=== PATIENT | female | born 1950 | race Hispanic/Latino ===

== ENCOUNTER 2019-10-14 17:57 | Emergency (ER) | payer MEDICARE ==
--- NOTE | 2019-10-15 05:20 | Emergency Department Report ---
ED Shortness of Breath HPI - General Chief Complaint: Dyspnea/Respdistress Stated Complaint: DIFFICULTY BREATHING Time Seen by Provider: 10/15/19 05:15 Source: patient - History of Present Illness Initial Comments: Patient is 68 years old female with history of congestive heart failure and hypertension. Patient presented to the ER complaining of shortness of breath, cough productive with greenish sputum. Patient stated that her symptoms as being going on for 2 weeks. Patient denied any fever or chills. MD Complaint: shortness of breath, cough ED Review of Systems ROS: Stated complaint: DIFFICULTY BREATHING Other details as noted in HPI Comment: All other systems reviewed and negative Constitutional: denies: chills, fever Respiratory: cough, shortness of breath, SOB with exertion, SOB at rest, wheezing Cardiovascular: denies: chest pain, palpitations, dyspnea on exertion Neurological: denies: headache, weakness, numbness, paresthesias, confusion ED Physical Exam - General General appearance: alert, in no apparent distress - Head Head exam: Present: atraumatic, normocephalic, normal inspection - Eye Eye exam: Present: normal appearance - ENT ENT exam: Present: normal exam, normal orophraynx, mucous membranes moist - Neck Neck exam: Present: normal inspection, full ROM. Absent: tenderness, meningismus, lymphadenopathy, thyromegaly - Respiratory Respiratory exam: Present: wheezes, rhonchi. Absent: rales, accessory muscle use, decreased breath sounds, prolonged expiratory - Cardiovascular Cardiovascular Exam: Present: regular rate, normal rhythm, normal heart sounds - GI/Abdominal GI/Abdominal exam: Present: soft, normal bowel sounds. Absent: distended, tenderness, guarding, rebound, rigid, organomegaly, mass, bruit, pulsatile mass, hernia - Extremities Exam Extremities exam: Present: normal inspection, full ROM, normal capillary refill. Absent: tenderness, pedal edema, joint swelling, calf tenderness - Back Exam Back exam: Present: normal inspection, full ROM. Absent: CVA tenderness (R), CVA tenderness (L), muscle spasm, paraspinal tenderness, vertebral tenderness - Neurological Exam Neurological exam: Present: alert, oriented X3, CN II-XII intact, normal gait, reflexes normal - Skin Skin exam: Present: warm, intact, normal color ED Course Vital Signs 10/15/19 02:00 Temperature 97.5 F L Pulse Rate 98 H Respiratory 24 Rate Blood Pressure 126/55 [Left] O2 Sat by Pulse 97 Oximetry ED Medical Decision Making - EKG Data -: EKG Interpreted by Me EKG shows normal: sinus rhythm Rate: normal - EKG Data Interpretation: no acute changes - Radiology Data Radiology results: report reviewed - Medical Decision Making Patient is 68 years old female with history of congestive heart failure and hypertension. Patient presented to the ER complaining of shortness of breath, cough productive with greenish sputum. Patient stated that her symptoms as being going on for 2 weeks. Patient denied any fever or chills. Patient received albuterol, Atrovent, Solu-Medrol and Levaquin. Patient stated that she is feeling much better. Labs reviewed and is unremarkable. Chest x- ray show no acute finding. Patient given prescription for Levaquin, prednisone and albuterol inhaler and advised to follow up with her primary care physician in the next 2-3 days and to return to the ER if symptoms are not improved. Critical care attestation.: If time is entered above; I have spent that time in minutes in the direct care of this critically ill patient, excluding procedure time. ED Disposition Clinical Impression: Acute bronchitis, Shortness of breath Disposition: DC-01 TO HOME OR SELFCARE Is pt being admited?: No Condition: Stable Instructions: Acute Bronchitis (ED), Dyspnea (ED) Referrals: PRIMARY CARE, [Primary Care Provider] - 3-5 Days
[2019-10-15 06:02] VITALS: BP 112/55
== END 2019-10-15 05:30 | disposition home or self-care (01) ==
LOC: ED 17:57
DX: J20.9 Acute bronchitis, unspecified (principal)
CPT/HCPCS: 99282

== ENCOUNTER 2019-10-17 13:29 | Emergency (ER) | payer MEDICARE ==
[2019-10-18 07:29] LABS: Basophils % (Auto) 0.2 % (0.0-1.8); Eosinophils # (Auto) 0.1 K/mm3 (0.0-0.4); Eosinophils % (Auto) 0.8 % (0.0-4.3); Hematocrit 39.9 % (30.3-42.9); Hemoglobin 13.5 gm/dl (10.1-14.3); INR 1.1 (0.87-1.13); Lymphocytes # (Auto) 2.9 K/mm3 (1.2-5.4); Lymphocytes % (Auto) 27.3 % (13.4-35.0); Mean Corpuscular HGB Conc 34 % (30-34); Mean Corpuscular Volume 91 fl (79-97); Monocytes # (Auto) 1.1 K/mm3 (0.0-0.8); Monocytes % (Auto) 10.1 % (0.0-7.3); Platelet Count 373 K/mm3 (140-440); Red Blood Count 4.38 M/mm3 (3.65-5.03)
[2019-10-18 07:30] LABS: Partial Thromboplastin Time 24.7 Sec. (24.2-36.6)
[2019-10-18 07:42] LABS: Creatine Kinase MB 3.4 ng/mL (0.0-4.0)
[2019-10-18 07:44] LABS: Alanine Aminotransferase 19 units/L (7-56); Albumin 3.8 g/dL (3.9-5); BUN/Creatinine Ratio 19; Bilirubin,Direct < 0.2 mg/dL (0-0.2); Blood Urea Nitrogen 27 mg/dL (7-17); Calcium 9.6 mg/dL (8.4-10.2); Hemolysis Index 3
--- NOTE | 2019-10-18 07:54 | Cat Scan Report ---
CT HEAD/BRAIN WO CON INDICATION / CLINICAL INFORMATION: Hallucinations and altered mental status. TECHNIQUE: All CT scans at this location are performed using CT dose reduction for ALARA by means of automated e xposure control. COMPARISON: None available. FINDINGS: The ventricular system is normal in size and configuration. There are moderate small vessel ischemic changes in the periventricular white matter and gangliocapsular regions bilaterally, right greater th an left. No focal lesion or mass effect is seen. There is no evidence of intracranial hemorrhage or a cute major vessel occlusion. The calvarium is intact. There is mucosal thickening involving the left maxillary antrum with an air- fluid level in the midportion of the left maxillary sinus. The other paranasal sinuses and mastoid ai r cells are clear. IMPRESSION: 1. No acute intracranial abnormality. 2. Acute left maxillary sinusitis. Signer Name: Dario Olson MD Signed: 10/18/2019 7:50 AM Workstation Name: [id number]
[2019-10-18] MEDS ORDERED: PANTOPRAZOLE 40 MG TAB PO ONE (08:10)
[2019-10-18] MEDS ORDERED: ALUM-MAG HYDROXIDE-SIMETHICONE 200-200-20MG/5ML ORAL LIQD 30 ML PO ONE (08:10)
[2019-10-18 10:05] LABS: Bilirubin,Urine NEG (Negative); Blood,Urine NEG (Negative); Color,Urine Yellow (Yellow); Mucus,Urine FEW /HPF; Protein,Urine <15 mg/dL mg/dL (Negative); Urobilinogen,Urine < 2.0 mg/dL (<2.0)
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
[2019-10-18 10:14] LABS: Amphetamine Screen,Urine PRESUMPTIVE NEGATIVE; Benzodiazepines Screen,Urine PRESUMPTIVE NEGATIVE; Cannabinoid Screen,Urine PRESUMPTIVE NEGATIVE; Cocaine Screen,Urine PRESUMPTIVE NEGATIVE; Methadone Screen,Urine PRESUMPTIVE NEGATIVE; Opiate Screen,Urine PRESUMPTIVE NEGATIVE
--- NOTE | 2019-10-18 12:07 | XRay Report ---
CHEST 1 VIEW INDICATION / CLINICAL INFORMATION: hypertension. COMPARISON: None available. FINDINGS: SUPPORT DEVICES: None. HEART / MEDIASTINUM: No significant abnormality. LUNGS / PLEURA: No significant pulmonary or pleural abnormality. No pneumothorax. ADDITIONAL FINDINGS: Left hemidiaphragm is mildly elevated. IMPRESSION: 1. No acute pulmonary disease. Signer Name: Elzbieta Winslow MD Signed: 10/18/2019 12:03 PM Workstation Name: [id number]
[2019-10-18 12:09] VITALS: BP 140/77
[2019-10-18] MEDS ORDERED: ACETAMINOPHEN 325 MG TAB PO ONE (12:09)
== END 2019-10-18 13:25 | disposition home or self-care (01) ==
LOC: ED 13:29
DX: I42.9 Cardiomyopathy, unspecified (principal); E87.6 Hypokalemia; N28.9 Disorder of kidney and ureter, unspecified; F99 Mental disorder, not otherwise specified; I50.9 Heart failure, unspecified; K21.9 Gastro-esophageal reflux disease without esophagitis; M19.90 Unspecified osteoarthritis, unspecified site; Z79.899 Other long term (current) drug therapy
CPT/HCPCS: 36415; 70450; 71045; 80048; 80076; 80307; 81001; 82550; 82553; 82962; 83735; 83880; 84484; 85025; 85610; 85730; 93005; 93010

== ENCOUNTER 2022-02-16 02:04 | Emergency (ER) | payer MEDICARE ==
[2022-02-16 02:51] VITALS: BP 120/78
[2022-02-16] MEDS ORDERED: LIDOCAINE-MPF (1%) 10 MG/1 ML VIAL 5 ML INFILTRATI ONE (08:13)
[2022-02-16] MEDS ORDERED: KETOROLAC 10 MG TAB PO ONE (08:13)
[2022-02-16] MEDS ORDERED: dexAMETHasone 4 MG/ML VIAL IM ONE (08:13)
[2022-02-16] MEDS ORDERED: ACETAMINOPHEN W/CODEINE 300-30 MG TAB PO ONE (08:14)
--- NOTE | 2022-02-16 08:19 | Emergency Department Report ---
Upper Extremity - HPI Chief Complaint: Extremity Injury, Upper Stated Complaint: LFT ELBOW Time Seen by Provider: 02/16/22 07:39 Upper Extremity: Left Elbow Occurred When: Today Severity: moderate Symptoms: Yes Pain with Movement, Yes Limited Range of Movement, Yes Swelling, No Deformity, No Numbness, No Weakness, No Bruising/Ecchymosis, No Laceration or Abrasion Other History: 71-year-old white female with a past medical history of CHF, hypertension, and anxiety presents to the emergency department for evaluation of left elbow pain and swelling. She states that she woke up this morning and she had pain and swelling in her left elbow but denies injury or trauma. She denies fever. ED Review of Systems ROS: Stated complaint: LFT ELBOW Other details as noted in HPI Comment: All other systems reviewed and negative Constitutional: denies: chills, fever Respiratory: denies: shortness of breath, SOB with exertion, SOB at rest Cardiovascular: denies: chest pain, palpitations Gastrointestinal: denies: abdominal pain, nausea, vomiting Genitourinary: denies: urgency, dysuria, frequency, hematuria, discharge Musculoskeletal: denies: back pain Skin: denies: rash, lesions Neurological: denies: headache, weakness ED Past Medical Hx - Past Medical History Previous Medical History?: Yes Hx Congestive Heart Failure: Yes Hx GERD: Yes Hx Arthritis: Yes - Surgical History Past Surgical History?: Yes Additional Surgical History: Hysterectomy - Social History Smoking Status: Former Smoker - Medications Home Medications: Home Medications Medication Instructions Recorded Confirmed Last Taken Type Albuterol Mdi (or & Nicu Only) 2 puff IH QID PRN #1 inhalation 10/15/19 10/16/19 Rx [ProAir HFA Inhaler] Prednisone [predniSONE 10 mg 10 mg PO .TAPER #1 tab.ds.pk 10/15/19 10/16/19 Rx (6-Day Pack, 21 Tabs)] levoFLOXacin [Levaquin TAB] 500 mg PO QDAY #7 tablet 10/15/19 10/16/19 Rx ISOSORBIDE MONOnitrate [Imdur ER] 30 mg PO DAILY 10/18/19 10/18/19 10/17/19 History PARoxetine [Paxil] 30 mg PO QDAY 10/18/19 10/18/19 10/17/19 History Potassium Chloride [Klor-Con 8] 8 meq PO QDAY #10 tablet 10/18/19 Unknown Rx Quetiapine Fumarate [SEROquel] 200 mg PO HS 10/18/19 10/18/19 10/17/19 History Simvastatin 20 mg PO QDAY 10/18/19 10/18/19 10/17/19 History Spironolactone [Aldactone] 50 mg PO QDAY 10/18/19 10/18/19 10/17/19 History Torsemide [Demadex] 20 mg PO QDAY 10/18/19 10/18/19 10/17/19 History carvediloL [Coreg] 12.5 mg PO QDAY 10/18/19 10/18/19 10/17/19 History carvediloL [Coreg] 25 mg PO BID #60 tablet 10/18/19 Unknown Rx Naproxen [Naprosyn] 500 mg PO BID 10 Days #20 tab 02/16/22 Unknown Rx Prednisone [predniSONE 10 mg 10 mg PO .TAPER #1 pack 02/16/22 Unknown Rx (6-Day Pack, 21 Tabs)] Upper Extremity Exam - Exam General: Vital signs noted. No distress. Alert and acting appropriately. Head and Torso: No HEENT Abnormality, No Neck Tenderness, No Chest/Lungs Abnormality, No Abdominal Tenderness, No Back Tenderness Shoulder Exam: Yes Normal Range of Motion in Shoulder, No Shoulder Tenderness, No Clavicle Tenderness, No Shoulder Deformity, No AC Joint Tenderness Arm Exam: No Arm/Humerus Tenderness, No Arm Deformity Elbow: Yes Elbow Tenderness (To area over bursa), No Normal Range of Motion in Elbow (Pain with flexion of elbow), No Elbow Deformity Forearm: No Forearm Tenderness, No Forearm Deformity Wrist: Yes Normal ROM in Wrist, No Wrist Tenderness, No Wrist Deformity, No Snuffbox Tenderness, No Pain with Axial Thumb Compression Hand: Yes Normal ROM in Digit(s), No Hand Tenderness, No Hand Deformity, No Digit Tenderness, No Digit(s) Deformity, No Tendon Dysfunction CMS Exam: Yes Normal Distal Pulses, Yes Normal Capillary Refill, Yes Normal Distal Sensation, No Broken Skin ED Course Vital Signs 02/16/22 02:25 Temperature 98.9 F Pulse Rate 82 Respiratory 16 Rate Blood Pressure 120/78 [Right] O2 Sat by Pulse 96 Oximetry - Bursa Procedures Consent Obtained: verbal consent Time Out Performed: Yes Indications: R/O septic bursitis, aspiration/injection Side of Body: left Site of Procedure: olecranon bursa XRAY Obtained: none Antisepsis Used: Chlorhexidine Fluid Obtained (mls): 3 Fluid Type: clear Patient Tolerated Procedure: well Complications: none ED Medical Decision Making - Medical Decision Making 71-year-old white female with a past medical history of CHF, hypertension, and anxiety presents to the emergency department for evaluation of left elbow pain and swelling. She states that she woke up this morning and she had pain and swelling in her left elbow but denies injury or trauma. She denies fever. Examination consistent with elbow bursitis. Patient noted to have erythema and warmth to touch to area, so bursa aspirated for 3 cc of clear yellow fluid to rule out septic bursitis. Given the fact that fluid was clear, patient will not be treated with long-term antibiotics, but she will be given one-time dose of Rocephin to cover for injection site. Patient will be treated with prednisone dosepak and naproxen. She is advised to take medications as prescribed and follow-up with orthopedics or primary care provider if no improvement or worsening symptoms. She verbalizes understanding of and agreement with plan of care. Critical care attestation.: If time is entered above; I have spent that time in minutes in the direct care of this critically ill patient, excluding procedure time. ED Disposition Clinical Impression: Bursitis of left elbow Qualifiers: Elbow bursitis location: unspecified Qualified Code(s): M70.32 - Other bursitis of elbow, left elbow Disposition: 01 HOME / SELF CARE / HOMELESS Is pt being admited?: No Does the pt Need Aspirin: No Condition: Stable Instructions: Elbow Bursitis Rehab-SportsMed, Elbow Bursitis, Inor-vt-Pmks Additional Instructions: Take medications as prescribed. Follow-up with primary care provider if no improvement or worsening symptoms. Return to the emergency department if you develop a fever. Prescriptions: Naproxen [Naprosyn] 500 mg PO BID 10 Days #20 tab Prednisone [predniSONE 10 mg (6-Day Pack, 21 Tabs)] 10 mg PO .TAPER #1 pack Referrals: GURPREET GÓMEZ MD [Staff Physician] - 3-5 Days Time of Disposition: 08:18
== END 2022-02-16 09:04 | disposition home or self-care (01) ==
LOC: ED 02:04
DX: M70.32 Other bursitis of elbow, left elbow (principal); Z87.891 Personal history of nicotine dependence; Z86.79 Personal history of other diseases of the circulatory system
CPT/HCPCS: 20610; 96372; 99282; J0696; J1100; J3490